=== PATIENT | female | born 1980 | race Caucasian/White ===

== ENCOUNTER 2020-05-03 13:03 | Outpatient (CLI) | payer BC, SELFPAY | END 2020-05-03 13:04 | disposition home or self-care (01) | LOC: ANHCOVIDVC 13:03 | PROVIDERS: PCP Physician Assistant | DX: Z23 Encounter for immunization (principal) | CPT/HCPCS: 0001A; 91300 ==

== ENCOUNTER 2020-05-24 12:59 | Outpatient (CLI) | payer BC, SELFPAY | END 2020-05-24 13:00 | disposition home or self-care (01) | LOC: ANHCOVIDVC 12:59 | PROVIDERS: PCP Physician Assistant | DX: Z23 Encounter for immunization (principal) | CPT/HCPCS: 0002A; 91300 ==